=== PATIENT | female | born 1965 | race Caucasian/White ===

== ENCOUNTER 2017-04-03 12:05 | Day surgery (SDC) | payer OTHER ==
[2017-04-02 09:03] VITALS: BMI 33.8
[2017-04-03 13:05] VITALS: TEMP 97.8
[2017-04-03] MEDS ORDERED: LIDOCAINE HCL 1%, 10 MG/ML (20ML VIAL) ONE (14:44)
[2017-04-03 16:18] VITALS: BP 125/90; PULSE 100
--- NOTE | 2017-04-03 16:38 | OP ---
DATE OF OPERATION: 04/03/2017 PREOPERATIVE DIAGNOSIS: Right breast abnormal ultrasound. POSTOPERATIVE DIAGNOSIS: Right breast abnormal ultrasound. PROCEDURE PERFORMED: Right breast ultrasound-guided wire-localized excision of mass. SURGEON: Mai Gilbert MD ANESTHESIA: Local. ESTIMATED BLOOD LOSS: Minimal. COMPLICATIONS: None. DISPOSITION: Stable at the end of the procedure. INDICATIONS FOR PROCEDURE: The patient had a routine screening mammography and ultrasound. The ultrasound noted a new solid nodule in the right breast at the 4 o'clock location, 1 cm from the nipple. We discussed the options of needle biopsy versus excision. She wanted to go ahead with an excision. The procedure was discussed with her. All of her questions were answered. DESCRIPTION OF PROCEDURE: The patient was brought to [facility] in [place] for ultrasound-guided wire localization by Dr. Villafuerte, radiologist. She was then brought to the operating room at [facility] in [place]. The right breast was prepped with Betadine and sterile drapes were used. The area in the lower inner right breast was anesthetized with 1% lidocaine without epinephrine. A periareolar incision was made in the lower inner right breast, and the wire was used as a guide to get down to the area of interest. This was excised en bloc and sent as "right breast excisional mass" to Pathology for permanent sections. Hemostasis was assured with direct pressure. The parenchyma was approximated with interrupted 3-0 Vicryl. The skin was approximated with interrupted 3-0 Vicryl and running 4-0 Prolene. A sterile dressing with Tegaderm and 4 x 4's was applied. She tolerated the procedure well and was taken to Recovery in good condition. MAI GILBERT M.D. [id number]
--- NOTE | 2017-04-09 12:02 | PATH ---
Surgical Pathology Report Patient Name: GROVER HAMMONDS [facility]. Rec. #: [id number] /Age/Gender: 1965 (Age: 51) / F Account: [id number] Location: [facility] Taken: 04/03/2017 Received: 04/06/2017 Reported: 04/09/2017 Physicians: Mai White M.D. Specimen(s) Received RIGHT BREAST EXCISION OF MASS 4:00 N+1 CM Clinical History Ultrasound findings: Suspicious Final Diagnosis BREAST, RIGHT, MASS, 4:00 N+1 CM, EXCISION: BENIGN BREAST TISSUE SHOWING PROLIFERATIVE FIBROCYSTIC CHANGES INCLUDING CYSTIC APOCRINE METAPLASIA, USUAL DUCTAL HYPERPLASIA (UDH), STROMAL FIBROSIS, COLUMNAR CELL CHANGES AND ASSOCIATED CALCIFICATIONS. Electronically Signed Alysha Walton M.D. Gross Description Received in formalin labeled "right breast excision of mass," is a 4.5 x 4.0 x 2.2 cm irregular, unoriented portion of fibroadipose tissue with a needle localization wire present. There is no skin or nipple present. Separately received within the same container is a 1.7 x 1.5 x 0.4 cm undesignated and unoriented fragment of fibroadipose tissue. The larger portion is inked blue and the smaller fragment is inked green. The specimens are serially sectioned. Sectioning reveals multiple ill-defined, firm foci of fibrous tissue within the larger specimen, focally abutting the radial margin. The specimen is entirely submitted in 12 cassettes as follows: [id number] and sequentially submitted larger specimen; [id number] submitted smaller specimen. Total formalin fixation time: Approximately 6 hours DL/04/06/2017/04/06/2017
== END 2017-04-03 16:26 | disposition home or self-care (01) ==
LOC: JASU-SURG 12:05
PROVIDERS: ATTEND Surgery
PROC: 0HBT0ZX Excision of Right Breast, Open Approach, Diagnostic (ICD-10-PCS; principal; 2017-04-03 13:00)
DX: D48.61 Neoplasm of uncertain behavior of right breast (principal)
CPT/HCPCS: 84703; 88307-TC